=== PATIENT | male | born 1995 | race Caucasian/White ===

== ENCOUNTER 2024-08-08 14:14 | Emergency (ER) | payer OTHER ==
[2024-08-08] MEDS ORDERED: Lidocaine 1% 5 ML VIAL INFILT ONE (14:15)
== END 2024-08-08 16:00 | disposition home or self-care (01) ==
LOC: FB.ED 14:14
DX: S61.210A Laceration without foreign body of right index finger without damage to nail, initial encounter (principal); F17.210 Nicotine dependence, cigarettes, uncomplicated; W23.1XXA Caught, crushed, jammed, or pinched between stationary objects, initial encounter; Y93.89 Activity, other specified; Y99.0 Civilian activity done for income or pay
CPT/HCPCS: 12001; 36415; 73130-RT; 99000; 99283; G0480; J2003